=== PATIENT | female | born 1930 | race Caucasian/White ===

== ENCOUNTER 2020-11-29 21:57 | Emergency (ER) | payer MEDICARE ==
[~2020-11-29] VITALS: Ht 157.5 cm; Wt 45.5 kg
--- NOTE | 2020-11-30 00:35 | REPVR ---
PROCEDURE INFORMATION: Exam: CT Head Without Contrast Exam date and time: 11/29/2020 10:49 PM Age: 89 years old Clinical indication: Injury or trauma; Fall; Concussion/head injury TECHNIQUE: Imaging protocol: Computed tomography of the head without contrast. Radiation optimization: All CT scans at this facility use at least one of these dose optimization techniques: automated exposure control; mA and/or kV adjustment per patient size (includes targeted exams where dose is matched to clinical indication); or iterative reconstruction. COMPARISON: No relevant prior studies available. FINDINGS: Images through the base of the brain and posterior fossa, including the brainstem are slightly degraded by beam hardening artifacts from the adjacent calvarium. There is no evidence of acute intracranial hemorrhage, extra axial fluid collection or hematoma. There is global parenchymal volume loss resulting in slight prominence of extra-axial spaces. There is no midline shift or herniation. The ventricles are not dilated. No evidence of pneumocephalus. There is intracranial atherosclerosis. Moderately severe scattered periventricular and deep white matter regions of hypoattenuation noted consistent with microvascular ischemic change and or white matter disease of indeterminate acuity. Small hypodensity noted along the left basal ganglia consistent with old lacunar infarct. No CT findings are seen at the current time to suggest changes of acute territorial vascular infarction. Note is made however, that CT changes, may lag clinical findings in acute CVA. If clinically indicated, consideration could be given to MRI with diffusion weighted imaging, due to its greater sensitivity, for early detection of acute ischemic change. Incidental intracranial calcifications are noted. There is a 3.7 cm left frontal scalp subgaleal soft tissue hemorrhage/hematoma. Ocular postoperative changes are noted. No acute cranial vault fracture is seen. There is a 2.5 cm right upper parietal bone lucent lesion surrounded by a rim of sclerosis, and cortical thickening of uncertain significance, but does not appear to be aggressive. Comparison with older studies if available or MRI would be helpful. No fluid is seen within the visualized paranasal sinuses or mastoid air cells. The visualized middle ear cavities are not opacified. IMPRESSION: Left frontal scalp hemorrhage/hematoma. No acute intracranial hemorrhage or acute calvarial fracture. Intracranial atherosclerosis and white matter changes of indeterminate acuity. Other nonemergent findings and recommendations discussed above. Electronically signed by: Matt Murphy On 11/30/2020 00:35:19 AM
[2020-11-30 00:38] LABS: BASO % 0.5 % (0.0-1.0); EOS # 0.2 10^3/uL (0.0-0.5); HEMOGLOBIN 11.8 g/dl (12.0-15.5); LYMPH # 1.5 10^3/uL (1.5-5.0); MEAN CORPUSCULAR HEMOGLOBIN 29.3 pg (27.0-33.0); MEAN CORPUSCULAR HGB CONC 31.1 g/dl (32.0-36.5); MEAN CORPUSCULAR VOLUME 94.3 fl (80.0-96.0); MONO # 0.7 10^3/uL (0.0-0.8); MONO % 11.7 % (2.0-8.0); NEUTROPHILS # 3.9 10^3/uL (1.5-8.5); NEUTROPHILS % 61.6 % (36.0-66.0); PLATELET COUNT, AUTOMATED 343 10^3/uL (150-450); RED BLOOD COUNT 4.03 10^6/uL (4.00-5.40); WHITE BLOOD COUNT 6.3 10^3/uL (4.0-10.0)
--- NOTE | 2020-11-30 00:48 | REPVR ---
PROCEDURE INFORMATION: Exam: CT Cervical Spine Without Contrast Exam date and time: 11/29/2020 10:54 PM Age: 89 years old Clinical indication: Neck pain; Additional info: Fall TECHNIQUE: Imaging protocol: Computed tomography images of the cervical spine without contrast. Radiation optimization: All CT scans at this facility use at least one of these dose optimization techniques: automated exposure control; mA and/or kV adjustment per patient size (includes targeted exams where dose is matched to clinical indication); or iterative reconstruction. COMPARISON: No relevant prior studies available. Study limitations: Evaluation through the upper cervical spine is compromised by motion artifact. FINDINGS: The bones appear slightly demineralized. There is heterogeneous bony mineralization. Cervical vertebral body heights and prevertebral soft tissues are within normal limits. There is cervicothoracic scoliosis. There is 1.7 mm of anterolisthesis of C2 upon C3 this may be on a degenerative basis. If posttraumatic instability is suspected, consider lateral flexion and extension radiographs or MRI for further evaluation. The atlantodental interval is maintained. The facet joints are not subluxed or dislocated. No acute fracture of the cervical spine is seen. There is a small well corticated calcification along the lower cervical nuchal ligament possibly related to old injury or dystrophic soft tissue calcification. Degenerative changes of the cervical spine are noted with disc space loss, anterior osteophytes, posterior bony ridging and facet arthropathy. There may be some bony fusion between the C3-C5 levels. If there are acute neurologic changes further evaluation by MRI is advised. Pleural thickening, pulmonary parenchymal fibrotic and emphysematous changes are noted at the visualized lung apices. There may be trace amount of pleural fluid on the right. Vascular calcifications noted. IMPRESSION: Slight limitations secondary to motion. No acute fracture of the cervical spine is seen. There is slight cervical malalignment at the C2/C3 level as discussed above. Other findings discussed above. Electronically signed by: Matt Murphy On 11/30/2020 00:47:36 AM
--- NOTE | 2020-11-30 01:30 | REPVR ---
PROCEDURE INFORMATION: Exam: XR Chest Exam date and time: 11/29/2020 12:01 AM Age: 89 years old Clinical indication: Pain; Right-sided; Additional info: Trauma TECHNIQUE: Imaging protocol: XR of the chest. Views: 2 views. COMPARISON: CT Spine,cervical w/o contrast 11/29/2020 11:09 PM FINDINGS: Limitations: Examination is limited by obliquity of the projection. Tubes, catheters and devices: Implanted ICD on the left with leads in radiographic satisfactory position. Lungs: No consolidation. Calcified granuloma in the right midlung. Pleural spaces: Unremarkable. No pleural effusion. No pneumothorax. Heart/Mediastinum: Unremarkable. No cardiomegaly. Vasculature: Severe calcified atherosclerotic disease. Bones/joints: Unremarkable. IMPRESSION: No acute infiltrate. Electronically signed by: Aubrie West On 11/30/2020 01:30:36 AM
--- NOTE | 2020-11-30 01:36 | REPVR ---
PROCEDURE INFORMATION: Exam: XR Right Shoulder Exam date and time: 11/29/2020 12:01 AM Age: 89 years old Clinical indication: Pain; Shoulder; Right; Additional info: Trauma TECHNIQUE: Imaging protocol: XR Right shoulder. Views: 2 or more views. Transscapular view was also included. COMPARISON: CR Humerus RIGHT 11/29/2020 11:45 PM FINDINGS: Bones/joints: No acute fracture. No dislocation. Mild hypertrophic changes of the acromioclavicular joint. Soft tissues: Normal. IMPRESSION: No acute fracture. Electronically signed by: Aubrie West On 11/30/2020 01:36:13 AM
[2020-11-30 01:52] LABS: ALBUMIN 3.1 GM/DL (3.2-5.2); ALT/SGPT 16 U/L (12-78); BILIRUBIN,DIRECT < 0.1 MG/DL (0.0-0.2); BILIRUBIN,TOTAL 0.4 MG/DL (0.2-1.0); BLOOD UREA NITROGEN 22 MG/DL (7-18); CALCIUM LEVEL 9.1 MG/DL (8.8-10.2); CARBON DIOXIDE LEVEL 27 MEQ/L (21-32); CHLORIDE LEVEL 107 MEQ/L (98-107); CK-MB VALUE MASS 1.6 NG/ML (<3.6); CPK CREATINE PHOSPHOKINASE 65 U/L (26-192); CREATININE FOR GFR 0.89 MG/DL (0.55-1.30); FREE T4 1.56 NG/DL (0.76-1.46); GLOMERULAR FILTRATION RATE > 60.0 (>32); GLUCOSE, FASTING 102 MG/DL (70-100); MB/CK RELATIVE INDEX 2.46 (< OR =4); POTASSIUM SERUM 4.7 MEQ/L (3.5-5.1); SODIUM LEVEL 139 MEQ/L (136-145); THYROID STIMULATING HORMONE 0.897 uIU/ML (0.358-3.740); TOTAL PROTEIN 6.4 GM/DL (6.4-8.2); TROPONIN I < 0.02 NG/ML (< 0.10)
--- NOTE | 2020-11-30 01:58 | REPVR ---
PROCEDURE INFORMATION: Exam: XR Right Humerus Exam date and time: 11/29/2020 12:01 AM Age: 89 years old Clinical indication: Pain; Upper arm; Right; Additional info: Trauma TECHNIQUE: Imaging protocol: XR Right humerus. Views: 2 or more views. COMPARISON: CR Chest, 2 view PA, Lat 11/29/2020 11:38 PM FINDINGS: Bones/joints: No acute fracture. Soft tissues: Normal. IMPRESSION: No acute fracture. Electronically signed by: Aubrie West On 11/30/2020 01:58:03 AM
[2020-11-30 02:29] VITALS: O2SAT 96
[2020-11-30 02:58] VITALS: BP 136/61
--- NOTE | 2020-11-30 17:42 | ECGEPIP ---
[facility] - ED Test Date: 2020-11-30 Pat Name: MICHELE CRAWFORD Department: Room: - Gender: Female [employer]: [facility] : [id number] Requested By: RYDER Elmore Order Number: [id number] Reading MD: Rukhsana Chen Measurements Intervals [place] Rate: 70 P: NC: QRS: -87 QRSD: 130 T: 90 QT: 462 QTc: 498 Interpretive Statements Ventricular-paced rhythm prolonged qtc No prior Electronically Signed on 11-30-2020 17:41:32 EDT by Rukhsana Chen
== END 2020-11-30 03:07 | disposition home or self-care (01) ==
LOC: M ED 21:57
DX: S40.011A Contusion of right shoulder, initial encounter (principal); S09.90XA Unspecified injury of head, initial encounter; S00.03XA Contusion of scalp, initial encounter; W19.XXXA Unspecified fall, initial encounter; Y92.099 Unspecified place in other non-institutional residence as the place of occurrence of the external cause; Y93.9 Activity, unspecified; Y99.9 Unspecified external cause status; I48.91 Unspecified atrial fibrillation; I50.9 Heart failure, unspecified; Z86.73 Personal history of transient ischemic attack (TIA), and cerebral infarction without residual deficits; F03.90 Unspecified dementia, unspecified severity, without behavioral disturbance, psychotic disturbance, mood disturbance, and anxiety; J44.9 Chronic obstructive pulmonary disease, unspecified; Z95.0 Presence of cardiac pacemaker; Z85.51 Personal history of malignant neoplasm of bladder